=== PATIENT | male | born 1960 | race African-American/Black ===

== ENCOUNTER 2017-12-31 12:06 | Emergency (ER) | payer MEDICAID, OTHER ==
[~2017-12-31] VITALS: Ht 177.8 cm; Wt 82.0 kg
[~2017-12-31 12:06] MED LIST: ITRA200T PO
[2017-12-31 12:17] VITALS: BP 135/83
[2017-12-31] MEDS ORDERED: BACITRACIN ZINC OINT UDPKT TOP ONE (17:00)
== END 2017-12-31 17:01 | disposition home or self-care (01) ==
LOC: ER 12:06
DX: S01.501A Unspecified open wound of lip, initial encounter (principal); E11.9 Type 2 diabetes mellitus without complications; W01.0XXA Fall on same level from slipping, tripping and stumbling without subsequent striking against object, initial encounter; Y93.89 Activity, other specified; Y92.89 Other specified places as the place of occurrence of the external cause; Y99.8 Other external cause status
CPT/HCPCS: 99283; Z7610

== ENCOUNTER 2018-02-14 10:39 | Emergency (ER) | payer MEDICAID ==
[~2018-02-14] VITALS: Ht 167.6 cm; Wt 84.0 kg
[2018-02-14 14:03] VITALS: BP 135/77
== END 2018-02-14 14:04 | disposition home or self-care (01) ==
LOC: ER 12:17
DX: S01.501D Unspecified open wound of lip, subsequent encounter (principal); E11.9 Type 2 diabetes mellitus without complications; W19.XXXD Unspecified fall, subsequent encounter
CPT/HCPCS: 99283

== ENCOUNTER 2020-12-13 13:01 | Emergency (ER) | payer OTHER, MEDICAID ==
[~2020-12-13] VITALS: Ht 177.8 cm; Wt 73.0 kg
[2020-12-13] MEDS ORDERED: KETOROLAC 30MG/ML VIAL IM ONE (13:45)
[2020-12-13 13:55] VITALS: BP 109/73
[2020-12-13] MEDS ORDERED: NAPR-679 MT ×2 (13:58)
[2020-12-13] MEDS ORDERED: TOPUD MT (14:14)
== END 2020-12-13 14:27 | disposition home or self-care (01) ==
LOC: ER 13:01
DX: S39.012A Strain of muscle, fascia and tendon of lower back, initial encounter (principal); S46.811A Strain of other muscles, fascia and tendons at shoulder and upper arm level, right arm, initial encounter; V43.52XA Car driver injured in collision with other type car in traffic accident, initial encounter; Y93.89 Activity, other specified; Y92.410 Unspecified street and highway as the place of occurrence of the external cause; E11.9 Type 2 diabetes mellitus without complications
CPT/HCPCS: 96372; 99283; J1885

== ENCOUNTER 2023-01-20 15:04 | Inpatient (IN) | payer OTHER, MEDICAID ==
[~2023-01-20] VITALS: Ht 172.7 cm; Wt 44.0 kg
[~2023-01-20 15:04] MED LIST changes: +HYDR-4350 MT; +METF-416 MT; +TOPUD MT
[2023-01-20] MEDS ORDERED: ACETAMINOPHEN 325MG TABLET PO STA (15:22)
[2023-01-20] MEDS ORDERED: CLINDAMYCIN 600 MG in DEXTROSE 5% WATER 50 ML IV ONE (15:30)
[2023-01-20] MEDS ORDERED: SODIUM CHLORIDE 0.9% 1000ML BAG (SEPSIS BOLUS) IV ONE (15:30)
[2023-01-20] MEDS ORDERED: VANCOMYCIN 1G PREMIX 200 ML IV ONE (15:30)
[2023-01-20] MEDS ORDERED: PIPERACILLIN/TAZ 3.375G PREMIX 50 ML IV ONE (15:30)
[2023-01-20] MEDS: CLINDAMYCIN 300 MG PREMIX 50 ML IV SCH ×2 (16:00→16:30)
[2023-01-20 17:05] LABS: CHLORIDE 100 mEq/L (98-107)
[2023-01-20 17:07] LABS: INR 1.4; PROTHROMBIN TIME 14.7 sec (9.6-11.0)
[2023-01-20 17:12] LABS: HEMOGLOBIN. 11.5 g/dL (14.0-18.0); MEAN CORPUSCULAR HEMOGLOBIN 28.6 pg (28.0-32.0); MEAN CORPUSCULAR VOLUME 86.8 fL (80.0-94.0); MEAN PLATELET VOLUME 7.5 fl (7.4-10.4); PLATELET 979 x1000/uL (130-400); RED BLOOD CELL COUNT 4.03 mill/uL (4.7-6.1); RED CELL DISTRIBUTION WIDTH 15.5 % (11.6-14.6)
[2023-01-20] MEDS ORDERED: ACETAMINOPHEN 325MG TABLET PO NR (17:30)
[2023-01-20] MEDS ORDERED: PIPERACILLIN/TAZ 3.375G PREMIX 50 ML IV SCH (18:00)
[2023-01-20] MEDS ORDERED: MAGNESIUM/ALUMINUM HYDROXIDE/SIMETHICONE 30ML UDC PO PRN (18:00)
[2023-01-20] MEDS ORDERED: IPRATROPIUM/ALBUTEROL 0.5-3(2.5)MG/3ML NEB NEB PRN (18:00)
[2023-01-20] MEDS ORDERED: NITROGLYCERIN 0.4MG TABLET SL SL PRN (18:00)
[2023-01-20] MEDS: SODIUM CHLORIDE 0.9% 1,000 ML IV SCH (18:00)
[2023-01-20] MEDS ORDERED: DEXTROSE 50% WATER 50ML SYRINGE IV PRN (18:00)
[2023-01-20] MEDS ORDERED: ONDANSETRON HCL 4MG/2ML INJ IV PRN (18:00)
[2023-01-20] MEDS ORDERED: DOCUSATE SODIUM 100MG CAPSULE PO PRN (18:00)
[2023-01-20] MEDS ORDERED: ACETAMINOPHEN 325MG TABLET PO PRN ×2 (18:00)
[2023-01-20] MEDS ORDERED: ZOLPIDEM TARTRATE 5MG TABLET PO PRN (18:00)
[2023-01-20] MEDS ORDERED: GUAIFENESIN 200MG/10ML SUGAR FREE UDC PO PRN (18:00)
[2023-01-20] MEDS ORDERED: KETOROLAC 15MG/ML VIAL IV PRN (18:00)
[2023-01-20] MEDS ORDERED: CLONIDINE 0.1MG TABLET PO PRN (18:00)
[2023-01-20] MEDS: INSULIN LISPRO 100 UNITS/ML SUBCUT SCH ×2 (18:20→21:00)
[2023-01-20 19:03] LABS: CLARITY URINE CLOUDY (CLEAR); COLOR URINE DARK YELLOW (YELLOW); KETONES URINE NEGATIVE (NEGATIVE); LEUKOCYTE ESTERASE URINE 3+ (NEGATIVE); NITRITE URINE NEGATIVE (NEGATIVE); OCCULT BLOOD URINE NEGATIVE (NEGATIVE); PH URINE 6.5 (4.5-8.0); PROTEIN URINE 1+ (NEGATIVE)
[2023-01-20 19:14] LABS: *AMPHETAMINES SCREEN URINE NEGATIVE (NEGATIVE); *BARBITURATES SCREEN URINE NEGATIVE (NEGATIVE); *BENZODIAZEPINES SCREEN URINE NEGATIVE (NEGATIVE); *COCAINE SCREEN URINE NEGATIVE (NEGATIVE); CANNABINOID URINE SCREEN NEGATIVE (NEGATIVE); METHADONE URINE SCREEN NEGATIVE (NEGATIVE); OPIATES URINE SCREEN PRESUMTIVE POSITIVE (NEGATIVE); PHENCYCLIDINE URINE SCREEN NEGATIVE (NEGATIVE)
[2023-01-20 19:19] LABS: T4 FREE 1.52 ng/dL (0.76-1.46)
[2023-01-20 19:31] LABS: FOLIC ACID (FOLATE) SERUM 10.8 ng/mL (>5.38)
[2023-01-20 19:53] LABS: PLATELET ESTIMATE MARKEDLY INCREASED
[2023-01-20] MEDS ORDERED: NOREPINEPHRINE 8MG/250ML PMX 250 ML IV PRN (21:00)
[2023-01-20] MEDS: ASCORBIC ACID 500 MG TABLET PO SCH (21:00)
[2023-01-20] MEDS: ENOXAPARIN 40MG/0.4ML SYR SUBCUT SCH (21:40)
[2023-01-20] MEDS: BLOOD SUGAR DIAGNOSTIC STRIP TEST SCH (21:40)
[2023-01-20] MEDS: FAMOTIDINE 20MG TABLET PO SCH (21:40)
[2023-01-20] MEDS: PIPERACILLIN/TAZOBACTAM 3.375G in DEXT 5% WATER 50ML IV SCH (22:00)
[2023-01-20 23:00] VITALS: BP 88/55
[2023-01-20] MEDS ORDERED: VANCOMYCIN 1G PREMIX 200 ML IV SCH (23:00)
[2023-01-20 23:08] VITALS: BP 93/76
[2023-01-20 23:16] VITALS: BP 113/53
[2023-01-20 23:30] VITALS: BP_SYST 108; BP_SYST 116; BP_DIAS 72
[2023-01-20 23:45] VITALS: BP 124/72
[2023-01-21] VITALS (66 sets, daily range): BP systolic 73–159; BP diastolic 40–112
[2023-01-21] MEDS: SODIUM CHLORIDE 0.9% 1,000 ML IV SCH ×2 (00:40→15:41)
[2023-01-21] MEDS: BLOOD SUGAR DIAGNOSTIC STRIP TEST SCH ×4 (05:54→20:35)
[2023-01-21] MEDS: INSULIN LISPRO 100 UNITS/ML SUBCUT SCH ×4 (06:03→20:35)
[2023-01-21 06:05] LABS: HEMATOCRIT. 34.4 % (42.0-52.0); HEMOGLOBIN. 11.2 g/dL (14.0-18.0); MEAN CORPUSCULAR HEMOGLOBIN 28.3 pg (28.0-32.0); MEAN CORPUSCULAR VOLUME 86.8 fL (80.0-94.0); MEAN PLATELET VOLUME 7.3 fl (7.4-10.4); PLATELET 861 x1000/uL (130-400); RED BLOOD CELL COUNT 3.96 mill/uL (4.7-6.1); RED CELL DISTRIBUTION WIDTH 15.5 % (11.6-14.6)
[2023-01-21 06:08] LABS: CHLORIDE 106 mEq/L (98-107)
[2023-01-21 06:12] LABS: PHOSPHORUS 2.3 mg/dL (2.5-4.9)
[2023-01-21] MEDS: PIPERACILLIN/TAZOBACTAM 3.375G in DEXT 5% WATER 50ML IV SCH ×3 (07:34→22:17)
[2023-01-21] MEDS: ASCORBIC ACID 500 MG TABLET PO SCH ×2 (08:00→20:27)
[2023-01-21] MEDS: FAMOTIDINE 20MG TABLET PO SCH ×2 (08:00→20:27)
[2023-01-21] MEDS: ZINC SULFATE 220 MG ( 50 ) CAPSULE PO SCH (09:47)
[2023-01-21] MEDS: MIDODRINE HCL 5MG TABLET PO SCH ×3 (09:47→17:54)
[2023-01-21] MEDS: VANCOMYCIN 1G PREMIX 200 ML IV SCH ×2 (10:55→20:27)
[2023-01-21 13:24] LABS: PLATELET ESTIMATE INCREASED
[2023-01-21] MEDS ORDERED: NOREPINEPHRINE 8 MG in DEXT 5% WATER 250 ML IV PRN (16:45)
[2023-01-21] MEDS ORDERED: MAGNESIUM 2 G PREMIX 50 ML IV NR (17:30)
[2023-01-21] MEDS: MULTIVITAMINS,THER W-MINERALS TABLET PO SCH (17:54)
[2023-01-21] MEDS: FOLIC ACID 1MG TABLET PO SCH (17:55)
[2023-01-21] MEDS: THIAMINE HCL 100MG TABLET PO SCH (17:57)
[2023-01-21] MEDS ORDERED: POTASSIUM PHOS,M-BASIC-D-BASIC 10 MMOL in DEXT 5% WATER 246.6667 ML IV NR (18:00)
[2023-01-21] MEDS: ENOXAPARIN 40MG/0.4ML SYR SUBCUT SCH ×2 (20:29→20:38)
[2023-01-22] VITALS (49 sets, daily range): BP systolic 63–131; BP diastolic 38–81
[2023-01-22 05:22] LABS: HEMATOCRIT. 31.8 % (42.0-52.0); HEMOGLOBIN. 10.4 g/dL (14.0-18.0); MEAN CORPUSCULAR HEMOGLOBIN 28.3 pg (28.0-32.0); MEAN CORPUSCULAR VOLUME 86.4 fL (80.0-94.0); MEAN PLATELET VOLUME 7.2 fl (7.4-10.4); PLATELET 723 x1000/uL (130-400); RED BLOOD CELL COUNT 3.68 mill/uL (4.7-6.1); RED CELL DISTRIBUTION WIDTH 15.1 % (11.6-14.6)
[2023-01-22 05:30] LABS: CHLORIDE 108 mEq/L (98-107)
[2023-01-22] MEDS: PIPERACILLIN/TAZOBACTAM 3.375G in DEXT 5% WATER 50ML IV SCH ×2 (05:49→12:51)
[2023-01-22] MEDS: BLOOD SUGAR DIAGNOSTIC STRIP TEST SCH ×4 (05:55→20:28)
[2023-01-22 06:49] LABS: PLATELET ESTIMATE INCREASED
[2023-01-22] MEDS: INSULIN LISPRO 100 UNITS/ML SUBCUT SCH ×4 (07:00→21:00)
[2023-01-22] MEDS ORDERED: POTASSIUM PHOS,M-BASIC-D-BASIC 10 MMOL in DEXT 5% WATER 250 ML IV SCH (09:00)
[2023-01-22] MEDS: FAMOTIDINE 20MG TABLET PO SCH ×2 (11:12→21:00)
[2023-01-22] MEDS: MIDODRINE HCL 5MG TABLET PO SCH ×3 (11:13→19:23)
[2023-01-22] MEDS: ASCORBIC ACID 500 MG TABLET PO SCH ×2 (11:13→21:00)
[2023-01-22] MEDS: MULTIVITAMINS,THER W-MINERALS TABLET PO SCH (11:13)
[2023-01-22] MEDS: FOLIC ACID 1MG TABLET PO SCH (11:13)
[2023-01-22] MEDS: ZINC SULFATE 220 MG ( 50 ) CAPSULE PO SCH (11:13)
[2023-01-22] MEDS: THIAMINE HCL 100MG TABLET PO SCH (11:16)
[2023-01-22] MEDS: SODIUM CHLORIDE 0.9% 1,000 ML IV SCH ×3 (11:16→20:28)
[2023-01-22] MEDS: CEFTRIAXONE 2 G in DEXTROSE 5% WATER 50 ML IV SCH (16:13)
[2023-01-22] MEDS: ENOXAPARIN 40MG/0.4ML SYR SUBCUT SCH (21:00)
[2023-01-22] MEDS: METRONIDAZOLE 500MG TABLET PO SCH (21:00)
[2023-01-23] VITALS: BP 109/77
[2023-01-23] MEDS: SODIUM CHLORIDE 0.9% 1,000 ML IV SCH ×2 (01:59→16:00)
[2023-01-23 04:00] VITALS: BP 113/74
[2023-01-23] MEDS: BLOOD SUGAR DIAGNOSTIC STRIP TEST SCH ×4 (06:04→20:48)
[2023-01-23] MEDS: INSULIN LISPRO 100 UNITS/ML SUBCUT SCH ×4 (06:04→20:48)
[2023-01-23] MEDS: MIDODRINE HCL 5MG TABLET PO SCH ×3 (09:00→17:00)
[2023-01-23] MEDS: SODIUM HYPOCHLORITE SOLUTION (0.5%)FULL STRENGTH TOP SCH (09:00)
[2023-01-23] MEDS: ZINC SULFATE 220 MG ( 50 ) CAPSULE PO SCH (09:10)
[2023-01-23] MEDS: MULTIVITAMINS,THER W-MINERALS TABLET PO SCH (09:10)
[2023-01-23] MEDS: FOLIC ACID 1MG TABLET PO SCH (09:10)
[2023-01-23] MEDS: METRONIDAZOLE 500MG TABLET PO SCH ×2 (09:10→20:48)
[2023-01-23] MEDS: FAMOTIDINE 20MG TABLET PO SCH ×2 (09:10→20:48)
[2023-01-23] MEDS: ASCORBIC ACID 500 MG TABLET PO SCH ×2 (09:10→20:48)
[2023-01-23] MEDS: THIAMINE HCL 100MG TABLET PO SCH (09:10)
[2023-01-23 12:00] VITALS: BP 115/66
[2023-01-23 16:00] VITALS: BP 154/81
[2023-01-23] MEDS: CEFTRIAXONE 2 G in DEXTROSE 5% WATER 50 ML IV SCH (16:00)
[2023-01-23 16:25] LABS: BASOPHILS % 1.2 % (0.0-2.0); EOSINOPHILS % 6.6 % (0.0-5.0); HEMATOCRIT. 32.5 % (42.0-52.0); HEMOGLOBIN. 10.7 g/dL (14.0-18.0); LYMPHOCYTES % 10.5 % (20.0-50.0); MEAN CORPUSCULAR HEMOGLOBIN 28.4 pg (28.0-32.0); MEAN PLATELET VOLUME 7.4 fl (7.4-10.4); NEUTROPHILS % 73.7 % (40.0-76.0); PLATELET 785 x1000/uL (130-400); RED BLOOD CELL COUNT 3.77 mill/uL (4.7-6.1); RED CELL DISTRIBUTION WIDTH 15.4 % (11.6-14.6)
[2023-01-23 16:34] LABS: CHLORIDE 114 mEq/L (98-107)
[2023-01-23 16:38] LABS: PHOSPHORUS 2.3 mg/dL (2.5-4.9)
[2023-01-23 20:00] VITALS: BP 116/73
[2023-01-23] MEDS ORDERED: MAGNESIUM 2 G PREMIX 50 ML IV NR (20:00)
[2023-01-23] MEDS: ENOXAPARIN 40MG/0.4ML SYR SUBCUT SCH (20:50)
[2023-01-23] MEDS ORDERED: POTASSIUM PHOS,M-BASIC-D-BASIC 10 MMOL in DEXT 5% WATER 246.6667 ML IV NR (21:00)
[2023-01-24] VITALS: BP 97/62
[2023-01-24] MEDS: SODIUM CHLORIDE 0.9% 1,000 ML IV SCH ×2 (02:00→14:57)
[2023-01-24 04:00] VITALS: BP 126/82
[2023-01-24 05:48] LABS: CHLORIDE 113 mEq/L (98-107)
[2023-01-24] MEDS: BLOOD SUGAR DIAGNOSTIC STRIP TEST SCH ×4 (05:50→21:05)
[2023-01-24] MEDS: INSULIN LISPRO 100 UNITS/ML SUBCUT SCH ×4 (05:50→21:00)
[2023-01-24 05:55] LABS: PHOSPHORUS 3.2 mg/dL (2.5-4.9)
[2023-01-24 06:18] LABS: BASOPHILS % 0.8 % (0.0-2.0); EOSINOPHILS % 6.4 % (0.0-5.0); HEMATOCRIT. 32.7 % (42.0-52.0); HEMOGLOBIN. 10.9 g/dL (14.0-18.0); LYMPHOCYTES % 12.5 % (20.0-50.0); MEAN CORPUSCULAR HEMOGLOBIN 28.7 pg (28.0-32.0); MEAN CORPUSCULAR VOLUME 86.4 fL (80.0-94.0); MEAN PLATELET VOLUME 7.2 fl (7.4-10.4); MONOCYTES % 8.6 % (2.0-8.0); NEUTROPHILS % 71.7 % (40.0-76.0); PLATELET 736 x1000/uL (130-400); RED BLOOD CELL COUNT 3.78 mill/uL (4.7-6.1); RED CELL DISTRIBUTION WIDTH 15.2 % (11.6-14.6)
[2023-01-24 08:00] VITALS: BP 133/80
[2023-01-24] MEDS: ZINC SULFATE 220 MG ( 50 ) CAPSULE PO SCH (08:39)
[2023-01-24] MEDS: FAMOTIDINE 20MG TABLET PO SCH (08:39)
[2023-01-24] MEDS: METRONIDAZOLE 500MG TABLET PO SCH ×2 (08:39→21:06)
[2023-01-24] MEDS: FOLIC ACID 1MG TABLET PO SCH (08:39)
[2023-01-24] MEDS: MULTIVITAMINS,THER W-MINERALS TABLET PO SCH (08:40)
[2023-01-24] MEDS: ASCORBIC ACID 500 MG TABLET PO SCH ×2 (08:40→21:06)
[2023-01-24] MEDS: THIAMINE HCL 100MG TABLET PO SCH (08:40)
[2023-01-24] MEDS: SODIUM HYPOCHLORITE SOLUTION (0.5%)FULL STRENGTH TOP SCH (08:41)
[2023-01-24] MEDS: MIDODRINE HCL 5MG TABLET PO SCH ×3 (08:42→17:00)
[2023-01-24] MEDS ORDERED: POTASSIUM CHLORIDE 20MEQ TABLET SR PO NR (08:45)
[2023-01-24] MEDS: ENOXAPARIN 30MG/0.3ML SYR SUBCUT SCH (09:00)
[2023-01-24] MEDS ORDERED: FAMOTIDINE 20MG TABLET PO SCH (09:00)
[2023-01-24 11:36] VITALS: BP 138/86
[2023-01-24] MEDS ORDERED: LIDOCAINE HCL 1% 10 MG/ML 10ML VIAL ONE (12:33)
[2023-01-24 15:37] VITALS: BP 147/86
[2023-01-24] MEDS: CEFTRIAXONE 2 G in DEXTROSE 5% WATER 50 ML IV SCH (16:15)
[2023-01-24 18:20] LABS: PHOSPHORUS 2.6 mg/dL (2.5-4.9)
[2023-01-24 20:00] VITALS: BP 149/91
[2023-01-25] VITALS: BP 118/68
[2023-01-25] MEDS: SODIUM CHLORIDE 0.9% 1,000 ML IV SCH ×3 (00:51→18:00)
[2023-01-25 04:00] VITALS: BP 128/84
[2023-01-25] MEDS: INSULIN LISPRO 100 UNITS/ML SUBCUT SCH ×4 (05:28→21:00)
[2023-01-25] MEDS: BLOOD SUGAR DIAGNOSTIC STRIP TEST SCH ×4 (05:28→21:00)
[2023-01-25 06:14] LABS: BASOPHILS % 1.2 % (0.0-2.0); EOSINOPHILS % 5.8 % (0.0-5.0); HEMATOCRIT. 30.8 % (42.0-52.0); HEMOGLOBIN. 10.3 g/dL (14.0-18.0); LYMPHOCYTES % 10.8 % (20.0-50.0); MEAN CORPUSCULAR HEMOGLOBIN 28.3 pg (28.0-32.0); MEAN CORPUSCULAR VOLUME 84.9 fL (80.0-94.0); MEAN PLATELET VOLUME 7.1 fl (7.4-10.4); MONOCYTES % 5.4 % (2.0-8.0); NEUTROPHILS % 76.8 % (40.0-76.0); PLATELET 729 x1000/uL (130-400); RED BLOOD CELL COUNT 3.63 mill/uL (4.7-6.1); RED CELL DISTRIBUTION WIDTH 15.3 % (11.6-14.6)
[2023-01-25 06:24] LABS: CHLORIDE 115 mEq/L (98-107)
[2023-01-25 06:31] LABS: PHOSPHORUS 2.7 mg/dL (2.5-4.9)
[2023-01-25 08:00] VITALS: BP 135/81
[2023-01-25] MEDS: MULTIVITAMINS,THER W-MINERALS TABLET PO SCH (08:45)
[2023-01-25] MEDS: ENOXAPARIN 30MG/0.3ML SYR SUBCUT SCH (08:45)
[2023-01-25] MEDS: METRONIDAZOLE 500MG TABLET PO SCH ×2 (08:46→22:30)
[2023-01-25] MEDS: FOLIC ACID 1MG TABLET PO SCH (08:46)
[2023-01-25] MEDS: ASCORBIC ACID 500 MG TABLET PO SCH ×2 (08:46→22:30)
[2023-01-25] MEDS: SODIUM HYPOCHLORITE SOLUTION (0.5%)FULL STRENGTH TOP SCH (08:46)
[2023-01-25] MEDS: FAMOTIDINE 20MG TABLET PO SCH (08:46)
[2023-01-25] MEDS: THIAMINE HCL 100MG TABLET PO SCH (08:46)
[2023-01-25] MEDS: ZINC SULFATE 220 MG ( 50 ) CAPSULE PO SCH (08:46)
[2023-01-25] MEDS: MIDODRINE HCL 5MG TABLET PO SCH (08:52)
[2023-01-25 12:00] VITALS: BP 115/58
[2023-01-25] MEDS ORDERED: MAGNESIUM 2 G PREMIX 50 ML IV NR (15:00)
[2023-01-25 16:00] VITALS: BP 115/75
[2023-01-25] MEDS: CEFTRIAXONE 2 G in DEXTROSE 5% WATER 50 ML IV SCH (18:10)
[2023-01-25 20:00] VITALS: BP 102/65
[2023-01-26] VITALS: BP 114/73
[2023-01-26 04:00] VITALS: BP 116/78
[2023-01-26] MEDS: SODIUM CHLORIDE 0.9% 1,000 ML IV SCH ×2 (04:46→15:20)
[2023-01-26] MEDS: BLOOD SUGAR DIAGNOSTIC STRIP TEST SCH ×3 (06:25→16:13)
[2023-01-26] MEDS: INSULIN LISPRO 100 UNITS/ML SUBCUT SCH ×3 (06:26→16:13)
[2023-01-26 08:00] VITALS: BP 121/55
[2023-01-26] MEDS: METRONIDAZOLE 500MG TABLET PO SCH (09:04)
[2023-01-26] MEDS: MULTIVITAMINS,THER W-MINERALS TABLET PO SCH (09:05)
[2023-01-26] MEDS: ASCORBIC ACID 500 MG TABLET PO SCH (09:05)
[2023-01-26] MEDS: FOLIC ACID 1MG TABLET PO SCH (09:05)
[2023-01-26] MEDS: FAMOTIDINE 20MG TABLET PO SCH (09:05)
[2023-01-26] MEDS: ZINC SULFATE 220 MG ( 50 ) CAPSULE PO SCH (09:06)
[2023-01-26] MEDS: THIAMINE HCL 100MG TABLET PO SCH (09:07)
[2023-01-26] MEDS: ENOXAPARIN 30MG/0.3ML SYR SUBCUT SCH (09:07)
[2023-01-26] MEDS: SODIUM HYPOCHLORITE SOLUTION (0.5%)FULL STRENGTH TOP SCH (09:10)
[2023-01-26 12:00] VITALS: BP 128/74
[2023-01-26] MEDS: CEFTRIAXONE 2 G in DEXTROSE 5% WATER 50 ML IV SCH (15:20)
[2023-01-26] MEDS ORDERED: CEFT2FRO5 IV (15:58)
[2023-01-26] MEDS ORDERED: METR-167 PO (15:58)
== END 2023-01-26 18:53 | disposition home health service (06) | DRG 720 ==
LOC: ER 15:04 → MICUSO 17:45 → EDBEDREQSVC 17:49 → EDBEDREQTM 17:49 → EDBEDREQ 17:49 → 7EST 01-22 17:15
PROVIDERS: ADMIT Internal Medicine; ATTEND Internal Medicine
PROC: 02HV33Z Insertion of Infusion Device into Superior Vena Cava, Percutaneous Approach (ICD-10-PCS; principal; 2023-01-24)
PROC: B518ZZA Fluoroscopy of Superior Vena Cava, Guidance (ICD-10-PCS; 2023-01-24)
PROC: B548ZZA Ultrasonography of Superior Vena Cava, Guidance (ICD-10-PCS; 2023-01-24)
PROC: 05H533Z Insertion of Infusion Device into Right Subclavian Vein, Percutaneous Approach (ICD-10-PCS; 2023-01-26)
PROC: B546ZZA Ultrasonography of Right Subclavian Vein, Guidance (ICD-10-PCS; 2023-01-26)
DX: A41.50 Gram-negative sepsis, unspecified (principal); R65.21 Severe sepsis with septic shock; E87.20 Acidosis, unspecified; E43 Unspecified severe protein-calorie malnutrition; E83.39 Other disorders of phosphorus metabolism; E87.1 Hypo-osmolality and hyponatremia; D50.9 Iron deficiency anemia, unspecified; E11.42 Type 2 diabetes mellitus with diabetic polyneuropathy; E11.621 Type 2 diabetes mellitus with foot ulcer; L03.115 Cellulitis of right lower limb; L97.519 Non-pressure chronic ulcer of other part of right foot with unspecified severity; E11.51 Type 2 diabetes mellitus with diabetic peripheral angiopathy without gangrene; D75.838 Other thrombocytosis; E11.628 Type 2 diabetes mellitus with other skin complications; E11.69 Type 2 diabetes mellitus with other specified complication; Z20.822 Contact with and (suspected) exposure to COVID-19; E83.42 Hypomagnesemia; F10.10 Alcohol abuse, uncomplicated; I10 Essential (primary) hypertension; D75.839 Thrombocytosis, unspecified; M86.8X7 Other osteomyelitis, ankle and foot; Z53.20 Procedure and treatment not carried out because of patient's decision for unspecified reasons; Y90.9 Presence of alcohol in blood, level not specified; R94.31 Abnormal electrocardiogram [ECG] [EKG]; E80.6 Other disorders of bilirubin metabolism; M20.11 Hallux valgus (acquired), right foot; N30.00 Acute cystitis without hematuria; F17.210 Nicotine dependence, cigarettes, uncomplicated; Z79.899 Other long term (current) drug therapy; Z79.4 Long term (current) use of insulin; Z79.1 Long term (current) use of non-steroidal anti-inflammatories (NSAID); Z68.1 Body mass index [BMI] 19.9 or less, adult
CPT/HCPCS: 36415; 36573; 71045; 73630; 73721; 80048; 80053; 80061; 80202; 80305; 80320; 81003; 82607; 82746; 82962; 83036; 83540; 83550; 83605; 83735; 84100; 84145; 84439; 84443; 84484; 85025; 85651; 86141; 87077; 87186; 87426; 93005; 93306; 93923; 93970; 97161; 99291; C1725; C9803; J0696; J1650; J1815; J2543; J3370; J3475; J3490; J7030; J7060; G0480

== ENCOUNTER 2023-01-26 20:05 | Emergency (ER) | payer OTHER, MEDICAID ==
[~2023-01-26] VITALS: Ht 170.2 cm; Wt 63.0 kg
[~2023-01-26 20:05] MED LIST changes: +CEFT2FRO5 IV; +METR-167 PO
[2023-01-26 20:08] VITALS: BP 116/84
[2023-01-26 22:00] LABS: HEMATOCRIT. 35.6 % (42.0-52.0); MEAN CORPUSCULAR HEMOGLOBIN 28.1 pg (28.0-32.0); MEAN CORPUSCULAR VOLUME 90.9 fL (80.0-94.0); MEAN PLATELET VOLUME 7.1 fl (7.4-10.4); PLATELET 697 x1000/uL (130-400); RED BLOOD CELL COUNT 3.91 mill/uL (4.7-6.1); RED CELL DISTRIBUTION WIDTH 15.8 % (11.6-14.6)
[2023-01-26 22:08] LABS: CHLORIDE 115 mEq/L (98-107)
[2023-01-26 23:01] LABS: PLATELET ESTIMATE INCREASED
== END 2023-01-27 01:45 | disposition left against medical advice (07) ==
LOC: ER 20:05
DX: Z53.21 Procedure and treatment not carried out due to patient leaving prior to being seen by health care provider (principal)
CPT/HCPCS: 36415; 80053; 82962; 85025; 99281

== ENCOUNTER 2023-04-23 14:11 | Inpatient (IN) | payer MEDICAID, OTHER ==
[~2023-04-23] VITALS: Ht 180.3 cm; Wt 71.7 kg
[~2023-04-23 14:11] MED LIST changes: -HYDR-4350 MT; -ITRA200T PO; -TOPUD MT
[2023-04-23 15:14] LABS: BASOPHILS % 1.3 % (0.0-2.0); CHLORIDE 109 mEq/L (98-107); EOSINOPHILS % 8.6 % (0.0-5.0); HEMATOCRIT. 37.6 % (42.0-52.0); HEMOGLOBIN. 11.9 g/dL (14.0-18.0); INDEX HEMOLYSI 1 (1-3); INDEX ICTERIC 1 (1-4); INDEX LIPEMIC 1 (1-3); LYMPHOCYTES % 16.7 % (20.0-50.0); MEAN CORPUSCULAR HEMOGLOBIN 27.4 pg (28.0-32.0); MEAN CORPUSCULAR HGB CONC 31.6 g/dL (31.0-37.0); MEAN CORPUSCULAR VOLUME 86.6 fL (80.0-94.0); MEAN PLATELET VOLUME 7.9 fl (7.4-10.4); MONOCYTES % 8.6 % (2.0-8.0); NEUTROPHILS % 64.8 % (40.0-76.0); PLATELET 341 x1000/uL (130-400); POTASSIUM 3.6 mEq/L (3.5-5.1); RED BLOOD CELL COUNT 4.34 mill/uL (4.7-6.1); RED CELL DISTRIBUTION WIDTH 17.5 % (11.6-14.6); SODIUM 136 mEq/L (136-145); WHITE BLOOD COUNT 6.8 x1000/uL (4.5-11.0)
[2023-04-23 15:23] LABS: ALANINE AMINOTRANSFERASE 20 IU/L (13-61); ALBUMIN 2.3 g/dL (3.4-5.0); ASPARTATE AMINOTRANSFERASE 39 IU/L (15-37); BILIRUBIN TOTAL 0.7 mg/dL (0.1-1.0); CALCIUM 8.4 mg/dL (8.5-10.1); CARBON DIOXIDE 19 mEq/L (21-32); PROTEIN TOTAL 8.4 g/dL (6.0-8.3); UREA NITROGEN BLOOD 10 mg/dL (7-21)
[2023-04-23] MEDS ORDERED: VANCOMYCIN 1G PREMIX 200 ML IV SCH (15:30)
[2023-04-23] MEDS ORDERED: PIPERACILLIN/TAZOBACTAM 3.375GM/50ML PREMIX IV ONE (15:30)
[2023-04-23] MEDS ORDERED: PIPERACILLIN/TAZ 3.375G PREMIX 50 ML IV SCH (15:30)
[2023-04-23] MEDS ORDERED: VANCOMYCIN 1GM PMX (XELLIA) 200 ML IV SCH (15:30)
[2023-04-23 15:35] LABS: GLUCOSE 163 mg/dL (70-105)
[2023-04-23 16:02] LABS: ERYTHROCYTE SEDIMENTATION RATE 18 mm/hr (0-20)
[2023-04-23 20:00] VITALS: BP 115/77; PULSE 90; RESP 16; TEMP 98.6
[2023-04-23 21:45] VITALS: BP 115/77; PULSE 90; RESP 16; TEMP 98.6
[2023-04-23] MEDS ORDERED: DEXTROSE 50% WATER 50ML SYRINGE IV PRN (22:15)
[2023-04-23] MEDS ORDERED: ACETAMINOPHEN 325MG TABLET PO PRN (22:15)
[2023-04-23] MEDS ORDERED: HYDROCODONE/ACETAMINOPHEN 5/325MG TABLET PO PRN (22:15)
[2023-04-23] MEDS: PIPERACILLIN/TAZOBACTAM 3.375 G in DEXTROSE 5% WATER 50 ML IV SCH (23:21)
[2023-04-24 04:00] VITALS: BP 96/63; PULSE 92; RESP 18; TEMP 98.1
[2023-04-24] MEDS ORDERED: VANCOMYCIN 1G PREMIX 200 ML IV SCH (04:00)
[2023-04-24] MEDS: PIPERACILLIN/TAZOBACTAM 3.375 G in DEXTROSE 5% WATER 50 ML IV SCH (05:32)
[2023-04-24] MEDS: BLOOD SUGAR DIAGNOSTIC STRIP TEST SCH ×4 (07:04→21:04)
[2023-04-24] MEDS: INSULIN LISPRO 100 UNITS/ML SUBCUT SCH ×4 (07:50→21:00)
[2023-04-24 08:00] VITALS: BP 97/68; PULSE 86; RESP 20; TEMP 99
[2023-04-24 12:00] VITALS: BP 99/65; PULSE 90; RESP 20; TEMP 97
[2023-04-24] MEDS ORDERED: CEFTRIAXONE 2GM/50ML (ADDEASE) 50 ML IV SCH (12:00)
[2023-04-24] MEDS: CEFTRIAXONE 2 G in DEXTROSE 5% WATER 50 ML IV SCH (14:00)
[2023-04-24 16:00] VITALS: BP 102/66; PULSE 107; RESP 20; TEMP 98.7
[2023-04-24 20:00] VITALS: BP 131/83; PULSE 98; RESP 17; TEMP 97.7
[2023-04-24] MEDS ORDERED: NALOXONE HCL 0.4MG/ML VIAL IV PRN (20:30)
[2023-04-25] MEDS: BLOOD SUGAR DIAGNOSTIC STRIP TEST SCH ×4 (06:38→20:58)
[2023-04-25] MEDS ORDERED: LIDOCAINE HCL 1% 10 MG/ML 10ML VIAL ONE (07:11)
[2023-04-25] MEDS: INSULIN LISPRO 100 UNITS/ML SUBCUT SCH ×4 (07:28→21:01)
[2023-04-25 08:00] VITALS: BP 105/75; PULSE 85; RESP 19; TEMP 97.9
[2023-04-25] MEDS: ENOXAPARIN 40MG/0.4ML SYR SUBCUT SCH (10:21)
[2023-04-25 12:00] VITALS: BP 100/50; PULSE 87; RESP 18; TEMP 97.7
[2023-04-25] MEDS: CEFTRIAXONE 2 G in DEXTROSE 5% WATER 50 ML IV SCH (13:30)
[2023-04-25 16:00] VITALS: BP 141/74; PULSE 95; RESP 18; TEMP 97.6
[2023-04-25 20:00] VITALS: BP 105/68; PULSE 94; RESP 17; TEMP 98.8
[2023-04-26] VITALS: BP 91/57; PULSE 91; RESP 15; TEMP 97.7
[2023-04-26] MEDS: BLOOD SUGAR DIAGNOSTIC STRIP TEST SCH ×2 (07:18→12:03)
[2023-04-26] MEDS: INSULIN LISPRO 100 UNITS/ML SUBCUT SCH ×2 (07:20→13:10)
[2023-04-26] MEDS: ENOXAPARIN 40MG/0.4ML SYR SUBCUT SCH (08:39)
[2023-04-26] MEDS: CEFTRIAXONE 2 G in DEXTROSE 5% WATER 50 ML IV SCH (14:40)
[2023-04-26 16:43] VITALS: BP 142/84; PULSE 92; TEMP 97.7; O2SAT 100
== END 2023-04-26 18:25 | disposition home health service (06) | DRG 344 ==
LOC: ER 14:20 → EDBEDREQ 16:25 → 6EST 20:52
PROVIDERS: ADMIT Internal Medicine; ATTEND Internal Medicine
PROC: 02HV33Z Insertion of Infusion Device into Superior Vena Cava, Percutaneous Approach (ICD-10-PCS; principal; 2023-04-25)
PROC: B548ZZA Ultrasonography of Superior Vena Cava, Guidance (ICD-10-PCS; 2023-04-25)
PROC: B5181ZA Fluoroscopy of Superior Vena Cava using Low Osmolar Contrast, Guidance (ICD-10-PCS; 2023-04-25)
DX: E11.69 Type 2 diabetes mellitus with other specified complication (principal); M86.8X7 Other osteomyelitis, ankle and foot; E43 Unspecified severe protein-calorie malnutrition; E11.621 Type 2 diabetes mellitus with foot ulcer; E11.40 Type 2 diabetes mellitus with diabetic neuropathy, unspecified; L97.419 Non-pressure chronic ulcer of right heel and midfoot with unspecified severity; L03.115 Cellulitis of right lower limb; D64.9 Anemia, unspecified; L97.519 Non-pressure chronic ulcer of other part of right foot with unspecified severity; I10 Essential (primary) hypertension; Z79.84 Long term (current) use of oral hypoglycemic drugs; Z91.199 Patient's noncompliance with other medical treatment and regimen due to unspecified reason; Z79.4 Long term (current) use of insulin; Z68.22 Body mass index [BMI] 22.0-22.9, adult
CPT/HCPCS: 36415; 36573; 73630; 73721; 80053; 80202; 82962; 84145; 85025; 85651; 87493; 97022; 97161; 99285; C1725; J0696; J1650; J1815; J2543; J3370; J3490; J7060